=== PATIENT | female | born 1935 | race African-American/Black ===

== ENCOUNTER 2016-12-31 19:04 | Inpatient (IN) | payer OTHER ==
[~2016-12-31] VITALS: Ht 158.8 cm; Wt 124.7 kg
[~2016-12-31 19:04] MED LIST: ATOR20TA65 PO; CALC-1034 PO; CLON0.3T4 PO; DOCU100T PO; FERR240T6 PO; FLUO20CA33 PO; HYDR-4005 PO; HYDR25TA PO; INSU100V28 IJ; LISI40TA4 PO; OMEP20CA10 PO; SENN8.6T60 PO; VERA-4 PO
[2016-12-31 20:31] LABS: BASOPHILS % 0.7 % (0.0-2.0); EOSINOPHILS % 0.1 % (0.0-5.0); HEMATOCRIT. 40.8 % (36.0-48.0); HEMOGLOBIN. 13.1 g/dL (12.0-16.0); LYMPHOCYTES % 12.8 % (20.0-50.0); MEAN CORPUSCULAR HEMOGLOBIN 29.8 pg (28.0-32.0); MEAN CORPUSCULAR VOLUME 92.7 fL (81.0-99.0); MEAN PLATELET VOLUME 7.7 fl (7.4-10.4); MONOCYTES % 10.8 % (2.0-8.0); NEUTROPHILS % 75.6 % (40.0-76.0); PLATELET 324 x1000/uL (130-400); RED CELL DISTRIBUTION WIDTH 15.2 % (11.6-14.6)
[2016-12-31 20:32] LABS: INR 1.1; PROTHROMBIN TIME 11.9 sec (9.4-11.6)
[2016-12-31 20:33] LABS: CHLORIDE 94 mEq/L (98-107)
[2016-12-31 20:38] LABS: CARBON DIOXIDE 31 mEq/L (21-32)
[2016-12-31 20:45] LABS: TROPONIN I 0.05 ng/mL (0.00-0.04)
[2016-12-31] MEDS ORDERED: FAMO20TA8 PO (22:08)
[2016-12-31] MEDS ORDERED: COLC0.6T66 PO (22:10)
[2016-12-31] MEDS ORDERED: ASPI-1159 PO (22:10)
[2016-12-31] MEDS ORDERED: FUROSEMIDE 40MG/4ML VIAL IVP SCH (22:30)
[2016-12-31] MEDS ORDERED: ACETAMINOPHEN 325MG TABLET PO PRN (23:15)
[2016-12-31] MEDS ORDERED: DEXTROSE 50% WATER 50ML SYRINGE IV PRN (23:15)
[2016-12-31] MEDS ORDERED: GUAIFENESIN 200MG/10ML SUGAR FREE UDC PO PRN (23:15)
[2016-12-31] MEDS ORDERED: IPRATROPIUM/ALBUTEROL 0.5-3(2.5)MG/3ML NEB INH PRN (23:15)
[2016-12-31] MEDS ORDERED: MORPHINE SULFATE 4 MG/ML CPJ (NOT FOR IM USE) IV PRN (23:15)
[2016-12-31] MEDS ORDERED: DOCUSATE SODIUM 100MG CAPSULE PO PRN (23:15)
[2016-12-31] MEDS ORDERED: ENOXAPARIN 40MG/0.4ML SYR SUBCUT SCH (23:15)
[2016-12-31] MEDS ORDERED: NITROGLYCERIN 0.4MG TABLET SL SL PRN (23:15)
[2016-12-31] MEDS ORDERED: MAGNESIUM/ALUMINUM HYDROXIDE/SIMETHICONE 30ML UDC PO PRN (23:15)
[2016-12-31] MEDS ORDERED: ZOLPIDEM TARTRATE 5MG TABLET PO PRN (23:15)
[2016-12-31] MEDS ORDERED: ONDANSETRON HCL 4MG/2ML VIAL IV PRN (23:15)
[2016-12-31] MEDS ORDERED: DIPHENHYDRAMINE 50MG/ML VIAL IV PRN (23:15)
[2016-12-31] MEDS ORDERED: TRAMADOL 50MG TABLET PO PRN (23:15)
[2016-12-31] MEDS ORDERED: CLONIDINE 0.1MG TABLET PO PRN (23:15)
[2017-01-01] MEDS ORDERED: NA PHOS,M-B/NA PHOS,DI-BA ENEMA 118ML PR PRN (02:18)
[2017-01-01 02:30] VITALS: BP 117/61
[2017-01-01] MEDS: BLOOD SUGAR DIAGNOSTIC STRIP TEST SCH ×3 (03:04→12:20)
[2017-01-01] MEDS ORDERED: INSULIN LISPRO 100 UNITS/ML SUBCUT SCH (03:11)
[2017-01-01] MEDS: INSULIN LISPRO 100 UNITS/ML SUBCUT SCH ×5 (03:18→12:50)
[2017-01-01] MEDS: SUCRALFATE 1 G/10 ML UDC PO SCH ×2 (06:30→13:30)
[2017-01-01 07:03] LABS: CREATINE KINASE MB FRACTION 2.7 ng/mL (0.5-3.6); TROPONIN I 0.04 ng/mL (0.00-0.04)
[2017-01-01 08:06] VITALS: BP 133/74
[2017-01-01] MEDS ORDERED: ASPIRIN 325MG EC TABLET PO SCH (09:00)
[2017-01-01] MEDS ORDERED: FUROSEMIDE 40MG/4ML VIAL IVP SCH (09:00)
[2017-01-01] MEDS ORDERED: ENOXAPARIN 40MG/0.4ML SYR SUBCUT SCH (09:00)
[2017-01-01] MEDS ORDERED: SPIRONOLACTONE 25MG TABLET PO SCH (09:00)
[2017-01-01] MEDS ORDERED: FAMOTIDINE 20MG/2ML VIAL IV SCH (09:00)
[2017-01-01] MEDS ORDERED: INSULIN DETEMIR UD 100 UNITS/ML SYR SUBCUT SCH (10:00)
[2017-01-01 12:00] VITALS: BP 120/60
[2017-01-01 16:23] VITALS: BP 144/74
[2017-01-01 16:24] LABS: TROPONIN I 0.04 ng/mL (0.00-0.04)
== END 2017-01-01 17:20 | disposition short-term general hospital (02) | DRG 291 ==
LOC: ER 19:24 → 6WST 22:18 → EDBEDREQTM 22:38 → EDBEDREQ 22:38 → ENRESERV 23:08 → UNDOADMIN 23:15 → 6WST 23:15 → SUPCPDRO 23:33
PROVIDERS: ADMIT Internal Medicine; ATTEND Internal Medicine
DX: I11.0 Hypertensive heart disease with heart failure (principal); N17.0 Acute kidney failure with tubular necrosis; E44.0 Moderate protein-calorie malnutrition; E87.1 Hypo-osmolality and hyponatremia; Z68.42 Body mass index [BMI] 45.0-49.9, adult; I20.0 Unstable angina; I50.43 Acute on chronic combined systolic (congestive) and diastolic (congestive) heart failure; R07.89 Other chest pain; K21.9 Gastro-esophageal reflux disease without esophagitis; G40.909 Epilepsy, unspecified, not intractable, without status epilepticus; E78.00 Pure hypercholesterolemia, unspecified; E66.01 Morbid (severe) obesity due to excess calories; E11.65 Type 2 diabetes mellitus with hyperglycemia; F32.9 Major depressive disorder, single episode, unspecified; Z88.8 Allergy status to other drugs, medicaments and biological substances; Z79.82 Long term (current) use of aspirin; Z79.899 Other long term (current) drug therapy
CPT/HCPCS: 36415; 71010; 72170; 72192; 73552; 80053; 80061; 82550; 82553; 82962; 83036; 83690; 83880; 84484; 85025; 85610; 85730; 93005; 93970; 96374; 99285; J1650; J1815; J1940; J3490

== ENCOUNTER 2018-03-27 05:47 | Inpatient (IN) | payer OTHER ==
[~2018-03-27] VITALS: Ht 167.6 cm; Wt 128.4 kg
[~2018-03-27 05:47] MED LIST changes: +ASPI-1159 PO; +COLC0.6T66 PO; +FAMO20TA8 PO
[2018-03-27] MEDS ORDERED: ONDANSETRON HCL 4MG/2ML INJ IV STA (06:48)
[2018-03-27] MEDS ORDERED: MORPHINE SULFATE 4 MG/ML CPJ (NOT FOR IM USE) IV STA (06:48)
[2018-03-27] MEDS ORDERED: MORPHINE SULFATE 10 MG/ML CPJ IV STA (06:56)
[2018-03-27 07:16] LABS: CHLORIDE 93 mEq/L (98-107)
[2018-03-27 07:19] LABS: INR 1.3; PARTIAL THROMBOPLASTIN TIME 29.4 sec (23.4-31.0); PROTHROMBIN TIME 12.7 sec (9.1-11.1)
[2018-03-27 07:37] LABS: BASOPHILS % 0.9 % (0.0-2.0); EOSINOPHILS % 0.3 % (0.0-5.0); HEMOGLOBIN. 16.1 g/dL (12.0-16.0); LYMPHOCYTES % 21.8 % (20.0-50.0); MEAN CORPUSCULAR HEMOGLOBIN 29.4 pg (28.0-32.0); MEAN CORPUSCULAR VOLUME 93.2 fL (81.0-99.0); MEAN PLATELET VOLUME 7.9 fl (7.4-10.4); MONOCYTES % 12.5 % (2.0-8.0); NEUTROPHILS % 64.5 % (40.0-76.0); PLATELET 309 x1000/uL (130-400); RED BLOOD CELL COUNT 5.47 mill/uL (4.2-5.4); RED CELL DISTRIBUTION WIDTH 17.4 % (11.6-14.6)
[2018-03-27] MEDS ORDERED: LEVETIRACETAM 500MG PREMIX 100 ML IV ONE (08:30)
[2018-03-27] MEDS ORDERED: AMLO2.5T45 MT (09:11)
[2018-03-27] MEDS ORDERED: METO25TA6 MT (09:11)
[2018-03-27] MEDS ORDERED: TRAZ-212 MT (09:11)
[2018-03-27] MEDS ORDERED: QUET25TA34 MT (09:11)
[2018-03-27] MEDS ORDERED: ASPI-1159 MT (09:11)
[2018-03-27] MEDS ORDERED: LEVE500T19 MT (09:11)
[2018-03-27] MEDS ORDERED: FURO40TA5 MT (09:11)
[2018-03-27] MEDS ORDERED: CALC-1042 PO (09:11)
[2018-03-27] MEDS ORDERED: ASCO100T12 PO (09:11)
[2018-03-27] MEDS ORDERED: ALBU90AE IH (09:11)
[2018-03-27] MEDS ORDERED: KTAB (09:12)
[2018-03-27 09:57] LABS: BG BASE EXCESS 3.5 mmol/L (-2.0-2.0); BG CARBOXYHEMOGLOBIN 4.4 % (0.5-1.5); BG DEOXYHEMOGLOBIN 16.2 % (0.0-5.0); BG FRACTION INSPIRED OXYGEN 24; BG HCO3 ACT 38.2 mmol/L (22.0-26.0); BG METHEMOGLOBIN 0.1 % (0.0-1.5); BG OXYHEMOGLOBIN 79.3 % (94.0-97.0); BG PCO2 122.3 mmHg (35.0-45.0); BG PH 7.113 (7.350-7.450); BG PO2 60.9 mmHg (75.0-100.0); BG SAMPLE SITE RIGHT BRACHIAL; BG TOTAL HEMOGLOBIN 16.3 g/dL (12.0-18.0); BG VENT MODE NASAL CANNULA
[2018-03-27] MEDS ORDERED: FUROSEMIDE 40MG/4ML VIAL IVP ONE (10:00)
[2018-03-27 14:54] LABS: BG BASE EXCESS 5.5 mmol/L (-2.0-2.0); BG BILEVEL POS AIRWAY PRESSURE 18/5; BG CARBOXYHEMOGLOBIN 3.8 % (0.5-1.5); BG DEOXYHEMOGLOBIN 6.9 % (0.0-5.0); BG FRACTION INSPIRED OXYGEN 60; BG HCO3 ACT 40.4 mmol/L (22.0-26.0); BG METHEMOGLOBIN 0.1 % (0.0-1.5); BG OXYGEN SATURATION 92.8 % (92.0-98.5); BG OXYHEMOGLOBIN 89.2 % (94.0-97.0); BG PCO2 125.2 mmHg (35.0-45.0); BG PH 7.127 (7.350-7.450); BG PO2 83.2 mmHg (75.0-100.0); BG SAMPLE SITE RIGHT RADIAL; BG TOTAL HEMOGLOBIN 16.3 g/dL (12.0-18.0); BG VENT MODE MASK - BIPAP; BG VENT RATE 14 set
[2018-03-27 16:00] VITALS: BP 101/54
[2018-03-27] MEDS ORDERED: IPRATROPIUM/ALBUTEROL 0.5-3(2.5)MG/3ML NEB HHN PRN (16:00)
[2018-03-27 16:28] VITALS: BP 101/54
[2018-03-27 17:00] VITALS: BP 97/52
[2018-03-27] MEDS ORDERED: CLONIDINE 0.1MG TABLET PO PRN (17:00)
[2018-03-27] MEDS ORDERED: ACETAMINOPHEN 650MG SUPP PR PRN (17:00)
[2018-03-27] MEDS ORDERED: DIPHENHYDRAMINE 50MG/ML VIAL IV PRN (17:00)
[2018-03-27] MEDS ORDERED: ACETAMINOPHEN 325MG TABLET PO PRN (17:00)
[2018-03-27] MEDS ORDERED: IPRATROPIUM/ALBUTEROL 0.5-3(2.5)MG/3ML NEB INH PRN (17:00)
[2018-03-27] MEDS ORDERED: MAGNESIUM/ALUMINUM HYDROXIDE/SIMETHICONE 30ML UDC PO PRN (17:00)
[2018-03-27] MEDS ORDERED: ACETAMINOPHEN 650MG/20.3ML UDC GT PRN (17:00)
[2018-03-27] MEDS ORDERED: DEXTROSE 50% WATER 50ML SYRINGE IV PRN (17:15)
[2018-03-27] MEDS: BLOOD SUGAR DIAGNOSTIC STRIP TEST SCH ×2 (17:37→21:00)
[2018-03-27] MEDS: METHYLPREDNISOLONE SOD SUCC 40 MG/ML VIAL IV SCH (17:50)
[2018-03-27] MEDS: INSULIN LISPRO 100 UNITS/ML SUBCUT SCH ×2 (17:51→21:55)
[2018-03-27] MEDS: DEXT 5%/0.45% NACL 1000ML 1,000 ML IV SCH (17:52)
[2018-03-27 18:00] VITALS: BP 91/54
[2018-03-27] MEDS ORDERED: IPRATROPIUM/ALBUTEROL 0.5-3(2.5)MG/3ML NEB INH SCH (18:00)
[2018-03-27 20:00] VITALS: BP 95/48
[2018-03-27] MEDS: IPRATROPIUM/ALBUTEROL 0.5-3(2.5)MG/3ML NEB HHN SCH (20:25)
[2018-03-27] MEDS: BUDESONIDE 0.5MG/2ML NEB HHN SCH (20:26)
[2018-03-27] MEDS ORDERED: FUROSEMIDE 100MG/10ML VIAL IVP SCH (20:30)
[2018-03-27] MEDS ORDERED: NA PHOS,M-B/NA PHOS,DI-BA ENEMA 118ML PR PRN (21:00)
[2018-03-27] MEDS: SODIUM CHLORIDE 0.9% INJ 3ML FLUSH IVF SCH (21:41)
[2018-03-27 22:00] VITALS: BP 97/51
[2018-03-28] VITALS (22 sets, daily range): BP systolic 73–107; BP diastolic 27–51
[2018-03-28] MEDS: IPRATROPIUM/ALBUTEROL 0.5-3(2.5)MG/3ML NEB HHN SCH ×5 (00:30→16:37)
[2018-03-28 00:50] LABS: CREATINE KINASE MB FRACTION 5.9 ng/mL (0.5-3.6)
[2018-03-28] MEDS: METHYLPREDNISOLONE SOD SUCC 40 MG/ML VIAL IV SCH ×2 (02:28→09:10)
[2018-03-28] MEDS: SODIUM CHLORIDE 0.9% INJ 3ML FLUSH IVF SCH ×2 (06:00→14:37)
[2018-03-28 06:22] LABS: CLARITY URINE CLOUDY (CLEAR); COLOR URINE YELLOW (YELLOW); KETONES URINE NEGATIVE (NEGATIVE); LEUKOCYTE ESTERASE URINE 3+ (NEGATIVE); NITRITE URINE NEGATIVE (NEGATIVE); OCCULT BLOOD URINE 3+ (NEGATIVE); PROTEIN URINE 2+ (NEGATIVE); SPECIFIC GRAVITY URINE 1.009 (1.005-1.030)
[2018-03-28 07:08] LABS: BASOPHILS % 0.3 % (0.0-2.0); HEMATOCRIT. 50.3 % (36.0-48.0); HEMOGLOBIN. 15.4 g/dL (12.0-16.0); LYMPHOCYTES % 7.3 % (20.0-50.0); MEAN CORPUSCULAR VOLUME 94.5 fL (81.0-99.0); MEAN PLATELET VOLUME 7.9 fl (7.4-10.4); NEUTROPHILS % 86.4 % (40.0-76.0); PLATELET 272 x1000/uL (130-400); RED BLOOD CELL COUNT 5.32 mill/uL (4.2-5.4); RED CELL DISTRIBUTION WIDTH 17.3 % (11.6-14.6)
[2018-03-28] MEDS: BLOOD SUGAR DIAGNOSTIC STRIP TEST SCH ×2 (08:08→13:01)
[2018-03-28] MEDS: BUDESONIDE 0.5MG/2ML NEB HHN SCH (08:28)
[2018-03-28] MEDS: INSULIN LISPRO 100 UNITS/ML SUBCUT SCH ×2 (08:32→13:19)
[2018-03-28 08:38] LABS: BG BILEVEL POS AIRWAY PRESSURE 18/5; BG CARBOXYHEMOGLOBIN 1.6 % (0.5-1.5); BG DEOXYHEMOGLOBIN 8.6 % (0.0-5.0); BG FRACTION INSPIRED OXYGEN 100; BG HCO3 ACT 25.9 mmol/L (22.0-26.0); BG METHEMOGLOBIN 0.1 % (0.0-1.5); BG OXYGEN SATURATION 91.3 % (92.0-98.5); BG OXYHEMOGLOBIN 89.7 % (94.0-97.0); BG PCO2 69.3 mmHg (35.0-45.0); BG PH 7.191 (7.350-7.450); BG SAMPLE SITE RIGHT BRACHIAL; BG TOTAL HEMOGLOBIN 15.4 g/dL (12.0-18.0); BG VENT MODE MASK - BIPAP; BG VENT RATE 20 set
[2018-03-28] MEDS ORDERED: FUROSEMIDE 40MG/4ML VIAL IVP SCH (09:00)
[2018-03-28 09:19] LABS: CHLORIDE 97 mEq/L (98-107)
[2018-03-28 09:32] LABS: CREATINE KINASE 98 IU/L (26-192); CREATINE KINASE MB FRACTION 5.9 ng/mL (0.5-3.6)
[2018-03-28 09:34] LABS: HDL CHOLESTEROL 48 mg/dL (40-59)
[2018-03-28 09:35] LABS: LDL CHOLESTEROL 38 mg/dL (5-100); PHOSPHORUS 7.1 mg/dL (2.5-4.9)
[2018-03-28 10:41] LABS: BG BILEVEL POS AIRWAY PRESSURE 18/5; BG CARBOXYHEMOGLOBIN 2.2 % (0.5-1.5); BG DEOXYHEMOGLOBIN 8.8 % (0.0-5.0); BG FRACTION INSPIRED OXYGEN 60; BG HCO3 ACT 35.6 mmol/L (22.0-26.0); BG METHEMOGLOBIN 0.4 % (0.0-1.5); BG OXYHEMOGLOBIN 88.6 % (94.0-97.0); BG PCO2 90.6 mmHg (35.0-45.0); BG PH 7.212 (7.350-7.450); BG PO2 67.4 mmHg (75.0-100.0); BG SAMPLE SITE RIGHT BRACHIAL; BG TOTAL HEMOGLOBIN 15.7 g/dL (12.0-18.0); BG VENT MODE MASK - BIPAP; BG VENT RATE 20 set
[2018-03-28] MEDS ORDERED: ENOXAPARIN 40MG/0.4ML SYR SUBCUT SCH (10:45)
[2018-03-28] MEDS ORDERED: HYDROCODONE/ACETAMINOPHEN 5/325MG TABLET PO PRN (11:30)
[2018-03-28] MEDS ORDERED: MAGNESIUM 2 G PREMIX 50 ML IV SCH (12:30)
[2018-03-28] MEDS ORDERED: ALBUMIN HUMAN 25GM/100ML (25%) IV NR (13:00)
[2018-03-28] MEDS ORDERED: ALBUMIN HUMAN 12.5GM/50ML (25%) IV NR (13:30)
[2018-03-28] MEDS: DEXT 5%/0.45% NACL 1000ML 1,000 ML IV SCH (14:30)
[2018-03-28 16:08] LABS: BASOPHILS % 0.2 % (0.0-2.0); HEMATOCRIT. 48.4 % (36.0-48.0); LYMPHOCYTES % 9.1 % (20.0-50.0); MEAN CORPUSCULAR HEMOGLOBIN 29.4 pg (28.0-32.0); MEAN CORPUSCULAR VOLUME 94.6 fL (81.0-99.0); MEAN PLATELET VOLUME 7.7 fl (7.4-10.4); MONOCYTES % 6.2 % (2.0-8.0); NEUTROPHILS % 84.5 % (40.0-76.0); PLATELET 254 x1000/uL (130-400); RED BLOOD CELL COUNT 5.12 mill/uL (4.2-5.4); RED CELL DISTRIBUTION WIDTH 17.6 % (11.6-14.6)
[2018-03-28 16:10] LABS: CHLORIDE 95 mEq/L (98-107)
[2018-03-28 16:17] LABS: LDL CHOLESTEROL 36 mg/dL (5-100)
[2018-03-28 16:18] LABS: CREATINE KINASE MB FRACTION 4.5 ng/mL (0.5-3.6)
[2018-03-28 16:19] LABS: CREATINE KINASE 75 IU/L (26-192)
[2018-03-28 16:21] LABS: T4 FREE 0.75 ng/dL (0.76-1.46)
[2018-03-28 16:22] LABS: HDL CHOLESTEROL 48 mg/dL (40-59)
[2018-03-28] MEDS ORDERED: LORAZEPAM 2MG/ML CPJ IV PRN (17:15)
[2018-03-28] MEDS ORDERED: MORPHINE SULFATE 250 MG in DEXT 5% WATER 240 ML IV PRN (17:30)
[2018-03-29] VITALS (34 sets, daily range): BP systolic 37–88; BP diastolic 17–51
[2018-03-29 00:01] LABS: CREATINE KINASE MB FRACTION 4.1 ng/mL (0.5-3.6)
[2018-03-29 07:01] LABS: CREATINE KINASE MB FRACTION 3.3 ng/mL (0.5-3.6)
[2018-03-30] VITALS: BP 74/14
== END 2018-03-30 02:43 | disposition expired | DRG 291 ==
LOC: ER 05:47 → EDBEDREQ 10:10 → EDBEDREQSVC 10:12 → ENRESERV 12:49 → CANRESERV 12:49 → 5EST 14:12 → ENRESERV 14:12 → 6EST 03-29 14:55
PROVIDERS: ADMIT Family Medicine; ATTEND Family Medicine
PROC: 5A09457 Assistance with Respiratory Ventilation, 24-96 Consecutive Hours, Continuous Positive Airway Pressure (ICD-10-PCS; principal; 2018-03-27)
DX: I13.0 Hypertensive heart and chronic kidney disease with heart failure and stage 1 through stage 4 chronic kidney disease, or unspecified chronic kidney disease (principal); J96.01 Acute respiratory failure with hypoxia; G93.41 Metabolic encephalopathy; I50.33 Acute on chronic diastolic (congestive) heart failure; J96.02 Acute respiratory failure with hypercapnia; E44.1 Mild protein-calorie malnutrition; E66.2 Morbid (severe) obesity with alveolar hypoventilation; E87.2 Acidosis; J44.1 Chronic obstructive pulmonary disease with (acute) exacerbation; N17.9 Acute kidney failure, unspecified; E78.5 Hyperlipidemia, unspecified; G40.909 Epilepsy, unspecified, not intractable, without status epilepticus; M10.9 Gout, unspecified; K21.9 Gastro-esophageal reflux disease without esophagitis; G47.9 Sleep disorder, unspecified; I95.9 Hypotension, unspecified; Z51.5 Encounter for palliative care; N18.9 Chronic kidney disease, unspecified; M17.11 Unilateral primary osteoarthritis, right knee; E11.22 Type 2 diabetes mellitus with diabetic chronic kidney disease; F17.200 Nicotine dependence, unspecified, uncomplicated; I25.10 Atherosclerotic heart disease of native coronary artery without angina pectoris; Z66 Do not resuscitate; Z96.652 Presence of left artificial knee joint; W01.0XXA Fall on same level from slipping, tripping and stumbling without subsequent striking against object, initial encounter; Y93.89 Activity, other specified; Y92.89 Other specified places as the place of occurrence of the external cause; Y99.8 Other external cause status; Z88.6 Allergy status to analgesic agent; Z68.39 Body mass index [BMI] 39.0-39.9, adult; I25.2 Old myocardial infarction; Z98.84 Bariatric surgery status; Z79.82 Long term (current) use of aspirin; Z79.899 Other long term (current) drug therapy
CPT/HCPCS: 36415; 36600; 71045; 72170; 73560; 74176; 76770; 78580; 80061; 82375; 82550; 82553; 82570; 82805; 82962; 83036; 83735; 83880; 84100; 84300; 84439; 84443; 84484; 85379; 87077; 87186; 93005; 93306; 93970; 94640; 94660; 96365; 96375; 99285; J1650; J1815; J1940; J1953; J2270; J2405; J2920; J3475; J3490; J7050; J7620; J7626; P9047; A4315